=== PATIENT | male | born 1950 | race Caucasian/White ===

== ENCOUNTER 2018-08-15 12:29 | Observation (INO) | payer MEDICARE, OTHER ==
--- NOTE | 2018-08-15 13:15 | EDM.PDOC ---
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 Was a time he reports to the emergency department by his weakness has resolved however he still has numbness and tingling in the left arm. He does have a past medical history dyslipidemia, diabetes mellitus type 2 and hypertension ABCD squared score is 5 moderate risk - Related Data Allergies Allergy/AdvReac Type Severity Reaction Status Date / Time No Known Allergies Allergy Verified 08/15/18 12:51 Home Meds: Home Meds atorvaSTATin Calcium [Lipitor] 40 mg PO DAILY 08/15/18 [History] metFORMIN [Glucophage] 1,000 mg PO BID 08/15/18 [History] Past Medical History HEENT History: Reports: Hard of Hearing Cardiovascular History: Reports: High Cholesterol Musculoskeletal History: Reports: Fracture Endocrine/Metabolic History: Reports: Diabetes, Type II - Past Surgical History HEENT Surgical History: Reports: Oral Surgery Musculoskeletal Surgical History: Reports: Carpal Tunnel, Other (See Below) Other Musculoskeletal Surgeries/Procedures:: ankle surgery, Social & Family History - Tobacco Use Smoking Status *Q: Never Smoker - Caffeine Use Caffeine Use: Reports: Coffee, Soda - Recreational Drug Use Recreational Drug Use: No Review of Systems - Review of Systems Review Of Systems: See Below Constitutional: Reports: No Symptoms Eyes: Reports: No Symptoms Ears: Reports: No Symptoms Nose: Reports: No Symptoms Mouth/Throat: Reports: No Symptoms Respiratory: Reports: No Symptoms Cardiovascular: Reports: No Symptoms GI/Abdominal: Reports: No Symptoms Genitourinary: Reports: No Symptoms Musculoskeletal: Reports: No Symptoms Skin: Reports: No Symptoms Neurological: Reports: Numbness, Tingling, Weakness ED EXAM, GENERAL - Physical Exam Exam: See Below Free Text/Narrative:: General: Male, not in any distress, alert and oriented x3 HEENT: head is atraumatic normocephalic, eyes pupils equal round reactive to light, sclera clear no conjunctivitis appreciated. Ears tympanic membranes clear and landmarks and light reflex are present bilaterally canals are clear. Nose no septal deviation, nares are clear, no blood present. Mouth mucosa is moist and pink no erythema or exudate noted in soft palate, tongue is midline uvula is midline, dentition is intact. Neck: Supple no thyromegaly no tracheal deviation. Nodes: Cervical nodes subclavicular nodes nontender no palpable lymphadenopathy noted. Lungs: clear to auscultation bilaterally with symmetrical respirations, no adventitious noise appreciated. CV: Regular rate and rhythm S1 and S2 appreciated no murmurs rubs or gallops noted. Abdomen: Soft, nontender, no palpable masses or organomegaly appreciated, no distention no guarding bowel sounds are present, . Neuro: Cranial nerves II test with pupillary light reflex 4 mm to 2 mm bilaterally, CN III test pupillary constriction, lid elevation and eye abduction bilaterally, CN IV downward movement of eyes bilaterally, CN V good jaw movement, CN lateral deviation of the eyes bilaterally to finger movement , CN VII symmetrical smile shows teeth without difficulty, CN VIII pass finger rub to ears bilaterally, CN IX adequate voice and tone, CN X adequate voice and tone no difficulty swallowing, CN XI can shrug shoulders without difficulty, CN XII can stick tongue out without difficulty, cranial nerves II to XII intact as tested, power is 5 out 5 in upper and lower extremities, patellar reflex, biceps reflex +2 can do finger to nose without difficulty, no dysdiadochokinesis , no difficulty with rapid alternating movements , no focal neurologic deficit Skin: Warm and dry, intact Extremities: No lower extremity edema appreciated, Course - Vital Signs Last Recorded V/S: Last Vital Signs Temp 97.9 F 08/15/18 12:48 Pulse 59 L 08/15/18 12:48 Resp 17 08/15/18 12:48 BP 139/87 08/15/18 12:48 Pulse Ox 97 08/15/18 12:48 - Orders/Labs/Meds Orders: Active Orders 24 hr Category Date Time Status EKG Documentation Completion [RC] ASDIRECTED Care 08/15/18 13:11 Active EKG 12 Lead [EK] Urgent Ther 08/15/18 13:11 Ordered Labs: Laboratory Tests 08/15/18 08/15/18 Range/Units 13:21 13:21 WBC 6.7 (4.5-11.0) K/uL RBC 4.18 L (4.30-5.90) M/uL Hgb 13.2 (12.0-15.0) g/dL Hct 39.1 L (40.0-54.0) % MCV 94 (80-98) fL MCH 32 H (27-31) pg MCHC 34 (32-36) % Plt Count 142 L (150-400) K/uL Neut % (Auto) 60 (36-66) % Lymph % (Auto) 30 (24-44) % [place] % (Auto) 9 H (2-6) % Eos % (Auto) 1 L (2-4) % Baso % (Auto) 0 (0-1) % ESR 32 H (0-20) mm/hr Sodium 140 (140-148) mmol/L Potassium 4.2 (3.6-5.2) mmol/L Chloride 105 (100-108) mmol/L Carbon Dioxide 26 (21-32) mmol/L Anion Gap 8.7 (5.0-14.0) mmol/L BUN 17 (7-18) mg/dL Creatinine 1.1 (0.8-1.3) mg/dL Est Cr Clr Drug Dosing 76.80 mL/min Estimated GFR (MDRD) > 60 (>60) Glucose 128 H (74-106) mg/dL Calcium 9.2 (8.5-10.1) mg/dL Total Bilirubin 0.8 (0.2-1.0) mg/dL AST 29 (15-37) U/L ALT 46 (12-78) U/L Alkaline Phosphatase 50 (46-116) U/L Troponin I < 0.017 (0.000-0.056) ng/mL Total Protein 7.1 (6.4-8.2) g/dL Albumin 3.9 (3.4-5.0) g/dL Globulin 3.2 (2.3-3.5) g/dL Albumin/Globulin Ratio 1.2 (1.2-2.2) Meds: Medications Discontinued Medications Generic Name Dose Route Start Last Admin Trade Name Freq PRN Reason Stop Dose Admin Aspirin 324 mg 08/15/18 14:44 Aspirin PO 08/15/18 14:45 ONETIME ONE Departure - Departure Time of Disposition: 15:01 Disposition: Refer to Observation Condition: Fair Clinical Impression: TIA (transient ischemic attack) - Discharge Information Referrals: PCP,None [Primary Care Provider] - Forms: ED Department Discharge - My Orders Last 24 Hours: My Active Orders 08/15/18 13:11 EKG Documentation Completion [RC] ASDIRECTED EKG 12 Lead [EK] Urgent - Assessment/Plan Last 24 Hours: My Active Orders 08/15/18 13:11 EKG Documentation Completion [RC] ASDIRECTED EKG 12 Lead [EK] Urgent Plan: Assessment Acuity = acute Site and laterality = probable transient ischemic attack with left arm weakness numbness and tingling now resolved Etiology = unclear etiology Manifestations = none Location of injury = Home Lab values = CBC, CMP, EKG, CT of the head all within normal limits Plan He did receive aspirin while in the emergency department his ABCD squared score is 5 puts him at moderate risk did discuss case hospitalist at 1450 he kindly agreed to admit the patient to hospital for further evaluation which included MRI/MRA and echocardiogram which could be done tomorrow This note was dictated using [employer] voice recognition software please call with any questions on syntax or grammar.
--- NOTE | 2018-08-15 14:37 | CT ---
Head wo Cont CLINICAL HISTORY: Left arm weakness COMPARISON: None TECHNIQUE: Transverse scans were obtained from the base of the skull through the vertex without IV contrast on a multislice, multidetector CT scanner. Auto dosage reduction and iterative reconstruction techniques employed. FINDINGS: No focal abnormal parenchymal density is identified. There is no mass effect, hemorrhage, or extraaxial collection. The basal cisterns and sulci over the convexities are prominent. The ventricles are normal for age. There is some mild to the periventricular and subcortical lucency There is moderate calcification in the vertebrobasilar arteries IMPRESSION: Age-related atrophy No focal lesion, mass effect or hemorrhage
[2018-08-15] MEDS ORDERED: Aspirin 81 MG Tab.Chew PO ONE (14:44)
--- NOTE | 2018-08-15 15:33 | PCM.HP ---
H&P History of Present Illness - General Date of Service: 08/15/18 Admit Problem/Dx: Admission Diagnosis/Problem Admission Diagnosis/Problem TIA, Transient ischemic attack Source of Information: Patient, Provider History Limitations: Reports: No Limitations - History of Present Illness Initial Comments - Free Text/Narative: CC: my left arm wasn't cooperating Gerald presents to the emergency room today after an episode of left arm weakness that was followed by numbness and tingling. He first noticed difficulty with his left arm around 11:15. He had been outside doing some yard work and when he came back inside he had trouble picking up and then holding onto his cell phone. The arm felt weak and his coordination felt like it was off. He tried to pick something up but missed the object by several inches. After several minutes of the discoordination his arm became initially numb and then started to develop some tingling. His symptoms lasted for about 30-45 minutes before resolving. He had some mild difficulty with coordination that persisted but this has completely resolved after about an hour and a half. He did not report headache, blurry vision, difficulty with speech or weakness in his left leg. He has never had an event like this in the past. He had been feeling well prior to onset of symptoms. No complaints of palpitations, chest pain or shortness of breath. No recent fevers. Workup in the emergency room has been largely reassuring. Laboratory studies are normal. Head CT was normal. There is concern for a TIA and he will be admitted for expedited workup and risk stratification. ABCD score is 5 suggesting moderate risk. - Related Data Allergies/Adverse Reactions: Allergies Allergy/AdvReac Type Severity Reaction Status Date / Time No Known Allergies Allergy Verified 08/15/18 12:51 Home Medications: Home Meds Aspirin [Adult Low Dose Aspirin EC] 81 mg PO DAILY 08/15/18 [History] atorvaSTATin Calcium [Lipitor] 40 mg PO DAILY 08/15/18 [History] metFORMIN [Glucophage] 1,000 mg PO BID 08/15/18 [History] Past Medical History HEENT History: Reports: Hard of Hearing Cardiovascular History: Reports: High Cholesterol Musculoskeletal History: Reports: Fracture Endocrine/Metabolic History: Reports: Diabetes, Type II - Past Surgical History HEENT Surgical History: Reports: Oral Surgery Musculoskeletal Surgical History: Reports: Carpal Tunnel, Other (See Below) Other Musculoskeletal Surgeries/Procedures:: ankle surgery, Social & Family History - Family History Neurological: Denies: CVA, TIA Endocrine/Metabolic: Reports: Diabetes, type II (older brother) - Tobacco Use Smoking Status *Q: Never Smoker - Caffeine Use Caffeine Use: Reports: Coffee, Soda - Recreational Drug Use Recreational Drug Use: No H&P Review of Systems - Review of Systems: Review Of Systems: See Below Free Text/Narrative: A complete 12 point review of systems was obtained. Pertinent positives and negatives are noted in the history of present illness. All other systems were reviewed and were negative except as noted. Exam - Exam Exam: See Below - Vital Signs Vital Signs: Last Vital Signs Temp 36.6 C 08/15/18 12:48 Pulse 59 L 08/15/18 12:48 Resp 17 08/15/18 12:48 BP 139/87 08/15/18 12:48 Pulse Ox 97 08/15/18 12:48 Weight: 129.274 kg - Exam Quality Assessment: No: Supplemental Oxygen General: Alert, Oriented, Cooperative. No: Mild Distress HEENT: Conjunctiva Clear, Mucosa Moist & [place]. No: Scleral Icterus Neck: Supple, Trachea Midline. No: Lymphadenopathy, Carotid Bruit, Thyromegaly Lungs: Clear to Auscultation, Normal Respiratory Effort Cardiovascular: Regular Rate, Regular Rhythm, Systolic Murmur (soft FARRAH heard throughout ) GI/Abdominal Exam: Normal Bowel Sounds, Soft, Non-Tender, No Distention, Other ( obese) Extremities: No Pedal Edema. No: Increased Warmth Peripheral Pulses: 2+: Dorsalis Pedis (L), Dorsalis Pedis (R) Skin: Warm, Dry, Intact. No: Rash Neuro Extensive - Mental Status: Alert, Oriented x3, Nl Response to Commands Neuro Extensive - Motor, Sensory, Reflexes: CN II-XII Intact. No: Dysarthria, Abnormal Motor, Tremor Psychiatric: Alert, Normal Affect - Patient Data Lab Results Last 24 hrs: Laboratory Results - last 24 hr 08/15/18 08/15/18 Range/Units 13:21 13:21 WBC 6.7 (4.5-11.0) K/uL RBC 4.18 L (4.30-5.90) M/uL Hgb 13.2 (12.0-15.0) g/dL Hct 39.1 L (40.0-54.0) % MCV 94 (80-98) fL MCH 32 H (27-31) pg MCHC 34 (32-36) % Plt Count 142 L (150-400) K/uL Neut % (Auto) 60 (36-66) % Lymph % (Auto) 30 (24-44) % [place] % (Auto) 9 H (2-6) % Eos % (Auto) 1 L (2-4) % Baso % (Auto) 0 (0-1) % ESR 32 H (0-20) mm/hr Sodium 140 (140-148) mmol/L Potassium 4.2 (3.6-5.2) mmol/L Chloride 105 (100-108) mmol/L Carbon Dioxide 26 (21-32) mmol/L Anion Gap 8.7 (5.0-14.0) mmol/L BUN 17 (7-18) mg/dL Creatinine 1.1 (0.8-1.3) mg/dL Est Cr Clr Drug Dosing 76.80 mL/min Estimated GFR (MDRD) > 60 (>60) Glucose 128 H (74-106) mg/dL Calcium 9.2 (8.5-10.1) mg/dL Total Bilirubin 0.8 (0.2-1.0) mg/dL AST 29 (15-37) U/L ALT 46 (12-78) U/L Alkaline Phosphatase 50 (46-116) U/L Troponin I < 0.017 (0.000-0.056) ng/mL Total Protein 7.1 (6.4-8.2) g/dL Albumin 3.9 (3.4-5.0) g/dL Globulin 3.2 (2.3-3.5) g/dL Albumin/Globulin Ratio 1.2 (1.2-2.2) Result Diagrams: 08/15/18 13:21 08/15/18 13:21 Imaging Impressions Last 24 hrs: Head CT - images personally reviewed - there is no evidence for mass, hemorrhage or infarct. No volume loss. EKG INTERPRETATION EKG Date: 08/15/18 Rhythm: NSR Rate (Beats/Min): 61 [place]: Normal P-Wave: Present QRS: Normal ST-T: Normal QT: Normal Comparison: NA - No Prior EKG *Q Meaningful Use (ADM) - VTE Risk Assess *Q Each Risk Factor Represents 1 Point: Obesity ( BMI > 25 kg/m2) Total Score 1 Point Risk Factors: 1 Each Risk Factor Represents 2 Points: Age 60 - 74 Years Total Score 2 Point Risk Factors: 2 Each Risk Factor Represents 3 Points: None Total Score 3 Point Risk Factors: 0 Each Risk Factor Represents 5 Points: None Total Score 5 Point Risk Factors: 0 Venous Thromboembolism Risk Factor Score *Q: 3 - Problem List (1) TIA (transient ischemic attack) SNOMED Code(s): 935124746 ICD Code: G45.9 - TRANSIENT CEREBRAL ISCHEMIC ATTACK, UNSPECIFIED Status: Acute Current Visit: Yes (2) Diabetes mellitus type II, controlled SNOMED Code(s): 86011725, 150184605 ICD Code: E11.9 - TYPE 2 DIABETES MELLITUS WITHOUT COMPLICATIONS Status: Chronic Current Visit: Yes Qualifiers: Diabetes mellitus chcf insulin use: without chcf use Diabetes mellitus complication status: without complication Qualified Code(s): E11.9 - Type 2 diabetes mellitus without complications (3) Hypercholesterolemia SNOMED Code(s): 30515377 ICD Code: E78.00 - PURE HYPERCHOLESTEROLEMIA, UNSPECIFIED Status: Chronic Current Visit: Yes Problem List Initiated/Reviewed/Updated: Yes Orders Last 24hrs: Active Orders 24 hr Category Date Time Status Patient Status Manage Transfer [TRANSFER] Routine ADT 08/15/18 15:22 Ordered EKG Documentation Completion [RC] ASDIRECTED Care 08/15/18 13:11 Active Resuscitation Status Routine Resus Stat 08/15/18 15:23 Ordered EKG 12 Lead [EK] Urgent Ther 08/15/18 13:11 Ordered Assessment/Plan Comment:: ASSESSMENT AND PLAN - Probable TIA - signs include left arm weakness and trouble with coordination. No involvement of face or leg reported. Head CT normal. He has a moderate risk with an ABCD score of 5. He does have a history of diabetes and hypercholesterolemia. -Cardiac monitoring -Daily aspirin -Continue statin -MRI and MRA in the morning -Echo in the morning Type 2 diabetes mellitus - Well controlled by history. Currently on only oral medications. -Continue metformin Hypercholesterolemia - Currently on moderate dose atorvastatin Maintenance issues - - DVT prophylaxis - SCD - GI prophylaxis - not indicated - Nutrition - diabetic - James catheter - not indicated CODE STATUS - full Admission justification - patient will be referred observation status for expedited workup with TIA symptoms Disposition - I would anticipate discharge home tomorrow unless he requires transfer for a higher level of care Primary care physician - Lianne Parham M.D.
[2018-08-15] MEDS ORDERED: Ondansetron 4 MG Tab.DIS PO PRN (16:21)
[2018-08-15] MEDS ORDERED: Acetaminophen 325 MG Tab PO PRN (16:21)
[2018-08-15] MEDS: METFORMIN 500 MG PO SCH (20:06)
[2018-08-16] MEDS: METFORMIN 500 MG PO SCH (08:26)
[2018-08-16] MEDS ORDERED: ASPIRIN 81 MG PO SCH (09:00)
[2018-08-16] MEDS ORDERED: atorvaSTATin 20 MG Tab PO SCH (09:00)
--- NOTE | 2018-08-16 11:06 | CRLMR ---
INDICATION: 67-year-old male. Transient ischemic attack. TECHNIQUE: Sagittal T1 axial FLAIR T2 diffusion weighted images of the brain. [id number] magnetic resonance angiography of the [place] arteries. FINDINGS: MRI brain: There is a solitary small focus (3 mm) of diffusion restriction within the right post central gyrus consistent with acute ischemic infarction. This corresponds anatomically to the motor gyrus affecting the left arm. No hemorrhage or mass effect. Ventricles and subarachnoid spaces mildly prominent due to mild atrophy. No focal lesions in the brainstem or cerebellum. The orbits sella turcica and skullbase are unremarkable there is mild inflammatory mucosal thickening in the left maxillary sinus. MRA [place]: The intracranial segments of the internal carotid arteries in the tortuous basilar artery are widely patent. The anterior middle and posterior cerebral arteries their proximal branches are patent. There is an apparent stenosis in the P2 segment of the right posterior cerebral artery. No aneurysm over 3 mm. No high-flow AV malformation. IMPRESSION: 1. Small focus of recent ischemic infarction within the right precentral gyrus (motor cortex for left arm). 2. Mild volume loss. 3. No large vessel occlusion or high-grade stenosis of proximal cerebral arteries. Dictated by Amandeep Kyle MD @ 08/16/2018 11:04:45 AM Dictated by: Amandeep Kyle MD @ 08/16/2018 11:04:56 (Electronically Signed)
--- NOTE | 2018-08-16 11:06 | CRLMR ---
INDICATION: 67-year-old male. Transient ischemic attack. TECHNIQUE: Sagittal T1 axial FLAIR T2 diffusion weighted images of the brain. Avgt-[id number]-aiuqal magnetic resonance angiography of the [place] arteries. FINDINGS: MRI brain: There is a solitary small focus (3 mm) of diffusion restriction within the right post central gyrus consistent with acute ischemic infarction. This corresponds anatomically to the motor gyrus affecting the left arm. No hemorrhage or mass effect. Ventricles and subarachnoid spaces mildly prominent due to mild atrophy. No focal lesions in the brainstem or cerebellum. The orbits sella turcica and skullbase are unremarkable there is mild inflammatory mucosal thickening in the left maxillary sinus. MRA [place]: The intracranial segments of the internal carotid arteries in the tortuous basilar artery are widely patent. The anterior middle and posterior cerebral arteries their proximal branches are patent. There is an apparent stenosis in the P2 segment of the right posterior cerebral artery. No aneurysm over 3 mm. No high-flow AV malformation. IMPRESSION: 1. Small focus of recent ischemic infarction within the right precentral gyrus (motor cortex for left arm). 2. Mild volume loss. 3. No large vessel occlusion or high-grade stenosis of proximal cerebral arteries. Dictated by Amandeep Kyle MD @ 08/16/2018 11:04:45 AM Dictated by: Amandeep Kyle MD @ 08/16/2018 11:05:08 (Electronically Signed)
--- NOTE | 2018-08-16 14:29 | PCM.DCSUM1 ---
Discharge Summary - Hospital Course Brief History: Louis is a 67-year-old gentleman who was admitted through the emergency department for further evaluationof probable TIA with weakness and numbness of his left upper extremity. 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 He first noticed difficulty with his left arm around 11:15. He had been outside doing some yard work and when he came back inside he had trouble picking up and then holding onto his cell phone. The arm felt weak and his coordination felt like it was off. He tried to pick something up but missed the object by several inches. After several minutes of the discoordination his arm became initially numb and then started to develop some tingling. His symptoms lasted for about 30-45 minutes before resolving. He had some mild difficulty with coordination that persisted but this has completely resolved after about an hour and a half. He did not report headache, blurry vision, difficulty with speech or weakness in his left leg. He has never had an event like this in the past. He had been feeling well prior to onset of symptoms. No complaints of palpitations, chest pain or shortness of breath. No recent fevers. Workup in the emergency room has been largely reassuring. Laboratory studies are normal. Head CT was normal. There is concern for a TIA and he will be admitted for expedited workup and risk stratification. ABCD score is 5 suggesting moderate risk. On admission he was placed on telemetry monitoring and had no obvious cardiac dysrhythmias during his hospitalization. MRI and MRA of the brain were obtained in the morning after admission and did show evidence of a small right-sided CVA , MRA portion of the study showed no obvious areas of blockage. Echocardiogram was obtained prior to discharge, preliminary report showed normal left ventricular function with no significant chamber enlargement or significant valvular abnormalities, there was left ventricular hypertrophy. Activity will be as tolerated and he will be on a heart healthy diet. Follow-up appointment will be scheduled with the media services director as well as a follow-up appointment with his primary care provider. Dose of aspirin will be increased to 1 325 mg tablet daily. Dose of Lipitor will be increased to 80 mg by mouth daily. Consider follow-up appointment with neurology concerning recent CVA. - Patient Instructions Diet: Heart Healthy Diet Activity: As Tolerated Other/Special Instructions: Please schedule follow-up appointment with primary care provider within one week. - Discharge Plan *PRESCRIPTION DRUG MONITORING PROGRAM REVIEWED*: Not Applicable *COPY OF PRESCRIPTION DRUG MONITORING REPORT IN PATIENT CHRISTIE: Not Applicable Prescriptions/Med Rec: Aspirin [Aspirin EC] 325 mg PO DAILY #100 tablet. atorvaSTATin [Lipitor] 80 mg PO BEDTIME #30 tab Home Medications: Home Meds metFORMIN [Glucophage] 1,000 mg PO BID 08/15/18 [History] Aspirin [Aspirin EC] 325 mg PO DAILY #100 tablet. 08/16/18 [Rx] atorvaSTATin [Lipitor] 80 mg PO BEDTIME #30 tab 08/16/18 [Rx] Referrals: Elinor Shrestha RN [Registered Nurse] - 10/11/18 10:30 am (Please arrive 15 minutes before your appointment. Bring blood sugar records.) - Discharge Summary/Plan Comment DC Time >30 min.: No - Patient Data Vitals - Most Recent: Last Vital Signs Temp 96.4 F 08/16/18 10:44 Pulse 62 08/16/18 10:44 Resp 18 08/16/18 10:44 BP 139/83 08/16/18 10:44 Pulse Ox 99 08/16/18 10:44 Weight - Most Recent: 285 lb I&O - Last 24 hours: Intake & Output 08/15/18 08/16/18 08/16/18 22:59 06:59 14:59 Intake Total 240 280 Balance 240 280 Lab Results - Last 24 hrs: Laboratory Results - last 24 hr 08/16/18 08/16/18 Range/Units 04:50 04:50 WBC 5.2 (4.5-11.0) K/uL RBC 4.09 L (4.30-5.90) M/uL Hgb 13.0 (12.0-15.0) g/dL Hct 38.9 L (40.0-54.0) % MCV 95 (80-98) fL MCH 32 H (27-31) pg MCHC 33 (32-36) % Plt Count 130 L (150-400) K/uL Sodium 142 (140-148) mmol/L Potassium 4.5 (3.6-5.2) mmol/L Chloride 106 (100-108) mmol/L Carbon Dioxide 28 (21-32) mmol/L Anion Gap 8.0 (5.0-14.0) mmol/L BUN 15 (7-18) mg/dL Creatinine 1.1 (0.8-1.3) mg/dL Est Cr Clr Drug Dosing 76.80 mL/min Estimated GFR (MDRD) > 60 (>60) Glucose 132 H (74-106) mg/dL Calcium 9.1 (8.5-10.1) mg/dL Triglycerides 146 (15-150) mg/dL Cholesterol 158 (0-200) mg/dL LDL Cholesterol Direct 106 H (0-100) mg/dL HDL Cholesterol 37 L (40-60) mg/dL Med Orders - Current: Current Medications Acetaminophen (Tylenol) 650 mg PO Q4H PRN PRN Reason: Pain (Mild 1-3)/fever Aspirin (Halfprin) 81 mg PO DAILY [facility] Last Admin: 08/16/18 08:26 Dose: Not Given Atorvastatin Calcium (Lipitor) 40 mg PO DAILY [facility] Last Admin: 08/16/18 09:33 Dose: Not Given [facility] Ondansetron HCl (Zofran Odt) 4 mg PO Q6H PRN PRN Reason: Nausea able to take PO Senna/Docusate Sodium (Senna Plus) 1 tab PO BID PRN PRN Reason: Constipation Discontinued Medications Aspirin (Aspirin) 324 mg PO ONETIME ONE Stop: 08/15/18 14:45 Last Admin: 08/15/18 15:03 Dose: 324 mg (Metformin [ Glucophage] 500 Mg)* Pt Own Med* 0 each PO BIDAC TOMASA Last Admin: 08/16/18 08:26 Dose: 1 each - Exam General: Reports: Alert, Oriented, Cooperative, No Acute Distress Neurological: Reports: Normal Gait, Normal Speech, Normal Tone, Strength Equal Bilateral, Sensation Intact, Cranial Nerves Intact
[2018-08-16] MEDS ORDERED: METFORMIN 500 MG PO SCH (17:00)
== END 2018-08-16 15:08 | disposition home or self-care (01) ==
LOC: JP.ED 12:29 → JP.MS 15:22
PROVIDERS: ADMIT Internal Medicine; ATTEND Internal Medicine
DX: I63.89 Other cerebral infarction (principal); G81.94 Hemiplegia, unspecified affecting left nondominant side; R20.9 Unspecified disturbances of skin sensation; E11.9 Type 2 diabetes mellitus without complications; E78.00 Pure hypercholesterolemia, unspecified; Z79.82 Long term (current) use of aspirin; Z79.84 Long term (current) use of oral hypoglycemic drugs; Z79.899 Other long term (current) drug therapy
CPT/HCPCS: 36415; 70450; 70544; 70551; 80048; 80053; 80061; 84484; 85025; 85027; 85651; 93005; 93306; 99285; A9270; G0378

== ENCOUNTER 2022-04-13 13:25 | Emergency (ER) | payer MEDICARE, OTHER ==
[2022-04-13] MEDS ORDERED: Sodium Chloride 0.9% 500 ML IV ONE (13:32)
[2022-04-13] MEDS ORDERED: Sodium Chloride 0.9% 10 ML Syringe FLUSH PRN (13:32)
[2022-04-13 14:09] LABS: ESTIMATED GFR 72 mL/min (>60); TROPONIN I HIGH SENSITIVITY 7.3 pg/mL (<=60.3)
[2022-04-13] MEDS ORDERED: Sodium Chloride 0.9% 10 ML Syringe FLUSH ONE (14:29)
[2022-04-13] MEDS ORDERED: Iopamidol 755 Mg/ML 100 ML Bottle IV SCH (14:30)
[2022-04-13] MEDS ORDERED: Sodium Chloride 0.9% 75 ML IV SCH (14:30)
== END 2022-04-13 16:51 | disposition home or self-care (01) ==
LOC: JP.ED 13:25
DX: G45.9 Transient cerebral ischemic attack, unspecified (principal); E11.9 Type 2 diabetes mellitus without complications; E78.00 Pure hypercholesterolemia, unspecified; Z79.82 Long term (current) use of aspirin; Z79.899 Other long term (current) drug therapy
CPT/HCPCS: 36415; 70450; 70496; 70498; 80053; 84484; 85025; 85610; 85730; 93005; 96360; 96361; 99284; J3490; J7040; Q9967; 82947; 93010; 99292

== ENCOUNTER 2022-12-03 17:52 | Emergency (ER) | payer MEDICARE, OTHER ==
[2022-12-03] MEDS ORDERED: Sodium Chloride 0.9% 1,000 ML IV STA (18:33)
[2022-12-03] MEDS ORDERED: Sodium Chloride 0.9% 10 ML Syringe FLUSH PRN (18:33)
[2022-12-03] MEDS ORDERED: Ketorolac 30 MG/ML SDV IVPUSH ONE (18:34)
[2022-12-03] MEDS ORDERED: Sodium Chloride 0.9% 50 ML IV ONE (18:41)
[2022-12-03] MEDS ORDERED: Sodium Chloride 0.9% 10 ML Syringe FLUSH ONE (18:41)
[2022-12-03] MEDS ORDERED: Iopamidol 612 MG/ML 100 ML Bottle IV ONE (18:41)
[2022-12-03 18:44] LABS: BASOPHILS PERCENT AUTO 0.3 % (0.1-1.3); EOSINOPHILS ABSOLUTE AUTO 0.08 K/uL (0.00-0.40); EOSINOPHILS PERCENT AUTO 1.1 % (0.0-5.4); HEMATOCRIT 44.3 % (38.4-49.7); HEMOGLOBIN 15.7 g/dL (12.9-16.9); IMMATURE GRAN ABSOLUTE AUTO 0.03 K/uL (0.00-0.23); IMMATURE GRAN PERCENT AUTO 0.4 % (0.0-0.7); LYMPHOCYTES ABSOLUTE AUTO 1.31 K/uL (0.8-3.3); LYMPHOCYTES PERCENT AUTO 17.8 % (11.4-47.7); MEAN CORPUSCULAR HEMOGLOBIN 31.7 pg (31.6-35.5); MEAN CORPUSCULAR HGB CONC 35.4 g/dL (31.6-35.5); MEAN CORPUSCULAR VOLUME 89.3 fL (81.4-99.0); MONOCYTES ABSOLUTE AUTO 0.45 K/uL (0.20-0.90); MONOCYTES PERCENT AUTO 6.1 % (3.3-12.6); NEUTROPHILS ABSOLUTE AUTO 5.48 K/uL (1.0-7.6); NEUTROPHILS PERCENT AUTO 74.3 % (40.0-78.1); PLATELET COUNT,PLT 146 K/uL (130-375); RED BLOOD CELL COUNT 4.96 M/uL (4.14-5.76); WHITE BLOOD CELL COUNT,WBC 7.4 K/uL (3.2-11.0)
[2022-12-03 18:48] LABS: BASOPHILS ABSOLUTE AUTO 0.02 K/uL (0.00-0.10)
[2022-12-03 18:57] LABS: APPEARANCE,URINE CLEAR (CLEAR); BILIRUBIN,URINE NEGATIVE (NEGATIVE); COLOR,URINE YELLOW (YELLOW); GLUCOSE,URINE 500 mg/dL (NEGATIVE); KETONES,URINE NEGATIVE (NEGATIVE); LEUKOCYTE ESTERASE,URINE NEGATIVE (NEGATIVE); NITRITE,URINE NEGATIVE (NEGATIVE); OCCULT BLOOD,URINE LARGE (NEGATIVE); PH,URINE 5.5 (5.0-8.0); PROTEIN,URINE NEGATIVE (NEGATIVE); UROBILINOGEN,URINE 0.2 EU/dL (0.2-1.0)
[2022-12-03 19:05] LABS: AMORPHOUS SEDIMENT,URINE NOT SEEN; BACTERIA,URINE NOT SEEN; EPITHELIAL CELLS,URINE RARE; MUCUS,URINE NOT SEEN; RBC,URINE 50-75 (0-5); WBC,URINE 0-5 (0-5)
[2022-12-03 19:05] LABS: A/G RATIO 1.1 (1.2-2.2); ALANINE AMINOTRANSFERASE,ALT 34 U/L (12-78); ALBUMIN 3.9 g/dL (3.4-5.0); ALKALINE PHOSPHATASE 84 U/L (46-116); ANION GAP 18.3 mmol/L (5.0-14.0); ASPARTATE AMNIOTRANSFERASE,AST 17 U/L (15-37); BILIRUBIN TOTAL 0.6 mg/dL (0.2-1.0); BLOOD UREA NITROGEN,BUN 24 mg/dL (7-18); CALCIUM 9.6 mg/dL (8.5-10.1); CARBON DIOXIDE,CO2 21 mmol/L (21-32); CHLORIDE,CL 100 mmol/L (100-108); CREATININE 1.4 mg/dL (0.8-1.3); EST CRCL DRUG DOSING (CG) 54.69 mL/min; ESTIMATED GFR 54 mL/min (>60); POTASSIUM,K 4.3 mmol/L (3.6-5.2); PROTEIN TOTAL,TP 7.6 g/dL (6.4-8.2); SODIUM,NA 135 mmol/L (140-148)
[2022-12-03 19:06] LABS: GLUCOSE RANDOM 467 mg/dL (74-106)
== END 2022-12-03 20:43 | disposition home or self-care (01) ==
LOC: JP.ED 17:52
DX: N13.2 Hydronephrosis with renal and ureteral calculous obstruction (principal); E78.00 Pure hypercholesterolemia, unspecified; E11.9 Type 2 diabetes mellitus without complications; Z79.82 Long term (current) use of aspirin; Z79.899 Other long term (current) drug therapy
CPT/HCPCS: 36415; 74177; 80053; 81001; 83605; 83690; 85025; 96374; 99284; J1885; J3490; J7030; Q9967

== ENCOUNTER 2022-12-05 22:20 | Emergency (ER) | payer MEDICARE, OTHER ==
[2022-12-05] MEDS ORDERED: Acetaminophen/HYDROcodone 325-10 MG Tab PO ONE (23:52)
[2022-12-05] MEDS ORDERED: Tamsulosin 0.4 MG Cap.ER PO ONE (23:53)
[2022-12-06 00:03] LABS: CREATININE 2.5 mg/dL (0.7-1.3); EST CRCL DRUG DOSING (CG) 30.63 mL/min
[2022-12-06] MEDS ORDERED: Sodium Chloride 0.9% 10 ML Syringe FLUSH PRN (00:19)
[2022-12-06] MEDS ORDERED: Sodium Chloride 0.9% 1,000 ML IV ONE (00:19)
== END 2022-12-06 02:10 | disposition home or self-care (01) ==
LOC: JP.ED 22:20
DX: N13.2 Hydronephrosis with renal and ureteral calculous obstruction (principal); N17.9 Acute kidney failure, unspecified; E11.9 Type 2 diabetes mellitus without complications; E78.00 Pure hypercholesterolemia, unspecified; Z86.73 Personal history of transient ischemic attack (TIA), and cerebral infarction without residual deficits; Z79.82 Long term (current) use of aspirin; Z79.899 Other long term (current) drug therapy
CPT/HCPCS: 36415; 82565; 96360; 99284; A9270; J3490; J7030